=== PATIENT | female | born 2000 | race African-American/Black ===

== ENCOUNTER 2024-07-13 02:13 | Emergency (ER) | payer MEDICAID ==
[~2024-07-13] VITALS: Ht 162.6 cm; Wt 122.5 kg
[2024-07-13 02:14] VITALS: PULSE 115; RESP 18; TEMP 98.1; O2SAT 98
== END 2024-07-13 03:31 | disposition left against medical advice (07) ==
LOC: FSED 02:20
DX: O26.892 Other specified pregnancy related conditions, second trimester (principal); R10.10 Upper abdominal pain, unspecified
CPT/HCPCS: 99284